=== PATIENT | male | born 1945 | race Caucasian/White ===

== ENCOUNTER → 2018-06-21 14:28 | Outpatient (CLI) | payer OTHER, SELFPAY ==
--- NOTE | 2018-06-21 14:35 | DI.RAD.S_ITS ---
PROCEDURE: XR SHOULDER LT MIN 2V INDICATIONS: Disorder of bone, unspecified TECHNIQUE: 3 views of the shoulder were acquired. COMPARISON: [facility], , SHOULDER MINIMUM 2VIEW RIGHT, 01/07/2010, 21:37. FINDINGS: Bones: No fractures or dislocations. No suspicious bony lesions. Visualized ribs appear intact. Severe acromioclavicular degenerative narrowing. The prominent glenohumeral degenerative narrowing is also present. Soft tissues: No suspicious soft tissue calcifications. IMPRESSION: Severe acromioclavicular degenerative change. Dictated by: Kenisha Lynch M.D. on 06/21/2018 at 16:02 Approved by: Kenisha Lynch M.D. on 06/21/2018 at 16:04
--- NOTE | 2018-06-21 14:35 | DI.RAD.S_ITS ---
PROCEDURE: XR ELBOW LT MIN 3V INDICATIONS: Fall on L shoulder/elbow TECHNIQUE: 3 views of the elbow were acquired. COMPARISON: None. FINDINGS: Bones: No fractures or dislocations. No suspicious bony lesions. Soft tissues: Trace elbow joint effusion. No suspicious soft tissue calcifications. IMPRESSION: Trace effusion. No visualized acute fracture or dislocation. However, if clinical concern and/or pain persist, short interval imaging followup in 7-10 days is recommended, as occult injury cannot be definitively excluded. Dictated by: Kenisha Lynch M.D. on 06/21/2018 at 16:00 Approved by: Kenisha Lynch M.D. on 06/21/2018 at 16:02
== END ==
PROVIDERS: PCP Family Medicine; Visit Provider Physician Assistant
DX: M25.512 Pain in left shoulder (principal); M25.522 Pain in left elbow; M19.012 Primary osteoarthritis, left shoulder
CPT/HCPCS: 73030; 73080